=== PATIENT | female | born 1965 | race Caucasian/White ===

== ENCOUNTER → 2017-05-09 | Outpatient (CLI) | payer BC ==
--- NOTE | 2017-05-09 11:27 | XR ---
EXAMINATION TYPE: XR cervical spine comp DATE OF EXAM: 05/09/2017 COMPARISON: NONE HISTORY: Neck pain radiating down the left shoulder for 4 weeks. TECHNIQUE: 5 views of the cervical spine were obtained. FINDINGS: Uncovertebral hypertrophy is seen at C6-C7, right greater than left. Intervertebral disc sp reji narrowing is seen at C5-C6 and C6-C7 with small anterior osteophytes. Facet arthropathy is also e vident at these levels. There is no prevertebral soft tissue swelling. Neural foramen appear patent r adiographically. Lung apices are clear. Odontoid is intact. There is straightening of the usual cervi shilpi lordosis. IMPRESSION: Degenerative disc disease most pronounced at C5-C6 and C6-C7. Although the neural foramen appear radiographically patent, MRI could be performed for further evaluation and to evaluate for di sc herniation.
== END | disposition home or self-care (01) ==
LOC: RADXRMAIN 10:56
PROVIDERS: ATTEND Family Medicine
DX: M50.322 Other cervical disc degeneration at C5-C6 level (principal)
CPT/HCPCS: 72050

== ENCOUNTER → 2017-10-27 | Outpatient (CLI) | payer BC ==
--- NOTE | 2017-10-27 13:50 | PN ---
PROGRESS NOTE DATE OF SERVICE: 10/27/2018 A 52-year-old lady who has been followed in the [facility] for treatment of obstructive sleep apnea-hypopnea syndrome. Patient continued to use her CPAP equipment every night without significant problems related to mask fitting, pressure and humidification. [place] Sleepiness Scale today is 3. According to her , she does not snore. I checked her CPAP unit, CPAP pressure is 7 cm of water, usage is 100% of the time more than 4 hours. Average usage is 8 hours. The patient does not have information about apnea-hypopnea index. No sleepiness during the day. [place] Sleepiness Scale is 3. MEDICATIONS: None at the present time. Rizs-mho-hlszreg sometimes Tylenol. PHYSICAL EXAM: Patient in no distress. BP 129/80, HR 96, RR 16, height 5, 5, weight 198, 2 pounds more than during the visit about 1 year ago. BMI 33. Temp 97.9. Oxygen saturation at room air 96%. OROPHARYNX: Extremely low position of soft palate, Mallampati 4. ABDOMEN: Slightly obese. Neck Supple, no JVD. Thyroid is not palpable. LUNGS Clear to percussion and to auscultation. Good air exchange. No wheezing or rhonchi. HEART S1, S2 regular. No murmurs, gallops, or rubs. EXTREMITIES No clubbing or cyanosis. COMMUNICATION SPEC Awake, alert, and oriented X3. Cranial nerves 2 to 7 intact. There is no fasciculation or atrophy. noted. No focal deficits observed. IMPRESSION: 1. Obstructive sleep apnea-hypopnea syndrome. Patient demonstrated 100% compliance with treatment benefitting from treatment. 2. Mild obesity. 3. Allergic rhinitis. 4. Hyperlipidemia. PLAN: 1. Prescription for all necessary CPAP supplies including mask, tube, filters. 2. Losing weight. 3. Sleep hygiene with regular time in bed at least 7.5 hours. 4. No driving if feeling any sleepiness. 5. Followup visit in 1 year or earlier if patient has any problems. Thank you very much for allowing me to participate in the management of your patient. Sincerely, Gadiel Liu MD, PhD, FAASM Diplomat of [place] [place] Sales Executive of [facility] [place] MMODL / TRACEEN: [id number] /
== END | disposition home or self-care (01) ==
LOC: SLEEP 13:02
PROVIDERS: ATTEND Internal Medicine
DX: G47.33 Obstructive sleep apnea (adult) (pediatric) (principal); E66.9 Obesity, unspecified; J30.9 Allergic rhinitis, unspecified; E78.5 Hyperlipidemia, unspecified; Z68.33 Body mass index [BMI] 33.0-33.9, adult

== ENCOUNTER → 2019-06-26 | Outpatient (CLI) | payer BC ==
--- NOTE | 2019-06-26 12:16 | MM ---
Reason for exam: screening (asymptomatic). Last mammogram was performed 2 years and 9 months ago. History: Patient is postmenopausal. Family history of breast cancer in paternal aunt and breast cancer in sister at age 63. Took hormonal contraceptives for 20 years. Physical Findings: A clinical breast exam by your physician is recommended on an annual basis and results should be correlated with mammographic findings. MG 3D Screening Mammo W/Cad Bilateral CC and MLO view(s) were taken. Prior study comparison: September 16, 2016, right breast MG work up mamm w CAD RT. August 31, 2016, bilateral MG screening mammo w CAD. The breast tissue is heterogeneously dense. This may lower the sensitivity of mammography. There are benign appearing round calcifications in the right breast. There is no discrete abnormality. ASSESSMENT: Benign, BI-RAD 2 RECOMMENDATION: Routine screening mammogram of both breasts in 1 year.
== END | disposition home or self-care (01) ==
LOC: RADMAMWWP 07:12
PROVIDERS: ATTEND Obstetrics & Gynecology
DX: Z12.31 Encounter for screening mammogram for malignant neoplasm of breast (principal); Z80.3 Family history of malignant neoplasm of breast
CPT/HCPCS: 77063; 77067

== ENCOUNTER → 2020-11-26 | Outpatient (CLI) | payer BC ==
--- NOTE | 2020-11-27 00:30 | SFUN ---
SLEEP CENTER FOLLOW UP NOTE DATE OF SERVICE: 11/26/2020 55-year-old lady has been followed in Sleep Center for treatment of obstructive sleep apnea-hypopnea syndrome. During the previous visit, the patient was in the office 2 years ago, she continued to use her CPAP equipment every night. No snoring with the machine. [place] Sleepiness Scale today is 2. I checked CPAP unit. CPAP pressure is 7 cm of water. Usage is 100% of nights more than 4 hours. Average usage is 7.7 hours per night. No information about apnea- hypopnea index or leak in the machine. MEDICATIONS: The patient taking medication for allergy and sometimes Tylenol. PHYSICAL EXAM: Patient in no distress. BP 140/92, HR 68, RR 18, height 5 feet 5.5 inches, weight 211.2 pounds, temperature 98.3. Oxygen saturation at room air 99%. HEENT: PERRLA, EOMI. Oropharynx extremely low position of soft palate. Mallampati 4. NECK: Supple, no JVD. Thyroid is not palpable. LUNGS: Clear to percussion and to auscultation. Good air exchange. No wheezing or rhonchi. HEART: S1, S2 regular. No murmurs, gallops, or rubs. ABDOMEN: Obese. Soft and nontender. Bowel sounds are present. No organomegaly appreciated. EXTREMITIES: No clubbing or cyanosis. PRESCHOOL HEAD TEACHER: Awake, alert, and oriented X3. Cranial nerves 2 to 7 intact. There is no fasciculation or atrophy. noted. No focal deficits observed. IMPRESSION: 1. Obstructive sleep apnea-hypopnea syndrome. Patient demonstrated 100% compliance with treatment benefitting from treatment. 2. Mild obesity. 3. Obesity. 4. Allergic rhinitis. 5. Hyperlipidemia. PLAN: 1. Patient will continue to use PAP equipment every night for the whole night. 2. Sleep hygiene with regular time in bed for at least 7-1/2 to 8 hours. 3. Precautions related to driving. No driving if feeling sleepiness. 4. I will maintain all necessary prescription for PAP supplies including mask, tube, filters. 5. Watching weight. 6. No driving if feeling sleepiness. 7. Follow-up visit in 6 months or earlier if patient has any problems. I wrote a prescription for patient supplies today to be sure that she will get all necessary supplies. Thank you very much for referring this patient for consultation. Sincerely, Gadiel Liu MD, PhD, FAASM Diplomat of [employer] Attendant of [facility] [place] MMODL / TRACEEN: [id number] /
== END | disposition home or self-care (01) ==
LOC: SLEEP 16:46
PROVIDERS: ATTEND Internal Medicine
DX: G47.33 Obstructive sleep apnea (adult) (pediatric) (principal); E66.9 Obesity, unspecified; E78.5 Hyperlipidemia, unspecified; J30.9 Allergic rhinitis, unspecified; Z99.89 Dependence on other enabling machines and devices

== ENCOUNTER → 2021-04-21 | Outpatient (CLI) | payer BC ==
--- NOTE | 2021-04-21 15:56 | BD ---
EXAMINATION TYPE: Axial Bone Density DATE OF EXAM: 04/21/2021 COMPARISON: NONE CLINICAL HISTORY: 56 YR OLD FEMALE......ICD-10 CODE: N95.1 POST MENOPAUSAL Height: 64.7 Weight: 207 FRAX RISK QUESTIONS: NOTHING TO NOTE HERE RISK FACTORS HISTORY OF: HX OF RT FOOT FX IN HER YOUNG ADULT YRS Postmenopausal woman: YES, AT 53 YR OLD, NO HORMONES Hyperparathyroidism: NO Adrenal Insufficiency: NO MEDICATIONS: Additional Medications: VIT D AND CALCIUM Additional History: NOTHING TO NOTE HERE EXAM MEASUREMENTS: Bone mineral densitometry was performed using the [employer] System. Bone mineral density as measured about the Lumbar spine is: ----- L1-L4(G/cm2): 1.156 T Score Values are as follows: ----- L1: 0.2 ----- L2: -0.3 ----- L3: -0.4 ----- L4: -0.3 ----- L1-L4: -0.2 Bone mineral density FIRST DEXA SCAN.....BASELINE STUDY Bone mineral density about the R hip (g/cm2): 1.017 Bone mineral density about the L hip (g/cm2): 1.008 T Score values are as follows: -----R Neck: -0.5 -----L Neck: -0.6 -----R Total: 0.1 -----L Total: 0.0 Bone mineral density BASELINE STUDY FRAX%s: THERE IS A 4.7% CHANCE FOR A MAJOR OSTEOPOROTIC FX AND A 0.1% FOR HIP......PROBABILITY FO R FX IN 10 YRS TIME IMPRESSION: Normal bone mineral density. NOTE: T-SCORE=SD OF THE YOUNG ADULT MEAN.
--- NOTE | 2021-04-22 10:57 | MM ---
Reason for exam: screening (asymptomatic). Last mammogram was performed 1 year and 10 months ago. History: Patient is postmenopausal. Family history of breast cancer in paternal aunt and breast cancer in sister at age 63. Took hormonal contraceptives for 20 years. Physical Findings: A clinical breast exam by your physician is recommended on an annual basis and results should be correlated with mammographic findings. MG 3D Screening Mammo W/Cad Bilateral CC and MLO view(s) were taken. Prior study comparison: June 26, 2019, bilateral MG 3d screening mammo w/cad. September 16, 2016, right breast MG work up mamm w CAD RT. The breast tissue is heterogeneously dense. This may lower the sensitivity of mammography. There is scattered asymmetry bilaterally similar to prior. ASSESSMENT: Benign, BI-RAD 2 RECOMMENDATION: Routine screening mammogram of both breasts in 1 year.
== END | disposition home or self-care (01) ==
LOC: RADMAMWWP 12:35
PROVIDERS: ATTEND Family Medicine
DX: Z12.31 Encounter for screening mammogram for malignant neoplasm of breast (principal); N95.1 Menopausal and female climacteric states
CPT/HCPCS: 77063; 77067; 77080

== ENCOUNTER → 2021-06-25 | Outpatient (CLI) | payer BC ==
--- NOTE | 2021-06-25 19:04 | SFUN ---
SLEEP CENTER FOLLOW UP NOTE DATE OF SERVICE: 06/25/2021 This 56-year-old lady has been followed in Sleep Center for treatment of obstructive sleep apnea-hypopnea syndrome. The patient continues to use her CPAP equipment every night. Sometimes she has episodes of snoring with the machine. [place] Sleepiness Scale today is 2. I checked her CPAP unit. It is old. Usage is 29/30 nights for more than 4 hours, average 7.3 hours per night. CPAP 7 cm of water. The machine does not have information about apnea-hypopnea index. MEDICATIONS: The patient does not take any prescribed medication at the present time. PHYSICAL EXAMINATION: GENERAL: Pleasant patient in no distress. VITAL SIGNS: BP 135/89, HR 78, RR 15, height 5 feet 5-1/2 inches, weight 207 pounds. Body mass index 33.7. The patient lost 4 pounds since previous visit. Temperature 98.2, oxygen saturation at room air 97%. HEENT: PERRLA, EOMI, evaluation of oropharynx showed tongue protrudes midline. Extremely low position of soft palate; Mallampati IV. NECK: Supple, no JVD. Thyroid is not palpable. LUNGS: Clear to percussion and to auscultation. Good air exchange. No wheezing or rhonchi. HEART: S1, S2 regular. No murmurs, gallops, or rubs. ABDOMEN: Obese. EXTREMITIES: No clubbing or cyanosis. GRILL COOK: Awake, alert, and oriented X3. Cranial nerves 2 to 7 intact. There is no fasciculation or atrophy. noted. No focal deficits observed. IMPRESSION: 1. Obstructive sleep apnea-hypopnea syndrome. Patient demonstrated 100% compliance with treatment, benefitting from treatment. CPAP unit is old and does not have information about apnea-hypopnea index. Episodes of snoring on CPAP. 2. Mild obesity. 3. History of allergic rhinitis. 4. Hyperlipidemia. PLAN: 1. Prescription for a new CPAP unit, automatic machine. Range of the pressure 5-10 to cover possibility of snoring. 2. Patient will continue to use PAP equipment every night for the whole night. 3. Sleep hygiene with regular time in bed for at least 7-1/2 to 8 hours. 4. Precautions related to driving. No driving if feeling sleepiness. 5. I will maintain all necessary prescription for PAP supplies including mask, tube, filters. 6. Watching weight. 7. Follow-up visit in 6 months or earlier if patient has any problems. I spent 30 minutes with the patient and documentation. Thank you very much for allowing me to participate in the management of your patient. Sincerely, Gadiel Liu MD, PhD, FAASM Diplomat of [place] [employer] Sleep Medicine Board of [place] [employer] Mid Level Clinician of [facility] [place] MMODL / TRACEEN: [phone] /
== END | disposition home or self-care (01) ==
LOC: SLEEP 16:50
PROVIDERS: ATTEND Internal Medicine
DX: G47.33 Obstructive sleep apnea (adult) (pediatric) (principal); E66.01 Morbid (severe) obesity due to excess calories; J30.9 Allergic rhinitis, unspecified; E78.5 Hyperlipidemia, unspecified; Z68.33 Body mass index [BMI] 33.0-33.9, adult

== ENCOUNTER → 2022-04-27 | Outpatient (CLI) | payer BC | END | disposition home or self-care (01) | LOC: RADMAMWWP 16:57 | PROVIDERS: ATTEND Family Medicine | DX: Z53.9 Procedure and treatment not carried out, unspecified reason (principal) ==

== ENCOUNTER → 2022-05-04 | Outpatient (CLI) | payer BC ==
--- NOTE | 2022-05-05 17:39 | MM ---
Reason for Exam: Screening (asymptomatic). Last screening mammogram was performed 12 month(s) ago. Patient History: Menarche at age 17. First Full-Term at age 29. Postmenopausal. Hormonal Contraceptives for 20 years until age 41. Paternal aunt had breast cancer at or over age 50. Sister had breast cancer, age 63. Risk Values: Nataly 5 year model risk: 2.1%. NCI Lifetime model risk: 14.2%. Prior Study Comparison: 09/16/2016 Right Diagnostic Mammogram, [facility]. 06/26/2019 Bilateral Screening Mammogram, [facility]. 04/21/2021 Bilateral Screening Mammogram, [facility]. Tissue Density: The breast tissue is heterogeneously dense. This may lower the sensitivity of mammography. Findings: Analyzed By CAD. No suspicious groups of microcalcifications, spiculated or lobular masses, architectural distortion or other secondary signs of malignancy are mammographically apparent. No significant interval changes are evident. Overall Assessment: Benign, BI-RAD 2 Management: Screening Mammogram of both breasts in 1 year. A negative mammogram report should not preclude additional follow up of suspicious palpable abnormalities. Patient should continue monthly self breast exam. A clinical breast exam by your physician is recommended on an annual basis and results should be correlated with mammographic findings. Electronically signed and approved by: Orlando Barry D.O. Radiologis
== END | disposition home or self-care (01) ==
LOC: RADMAMWWP 16:12
PROVIDERS: ATTEND Family Medicine
DX: Z12.31 Encounter for screening mammogram for malignant neoplasm of breast (principal); Z00.00 Encounter for general adult medical examination without abnormal findings
CPT/HCPCS: 77063; 77067

== ENCOUNTER → 2025-02-05 | Outpatient (CLI) | payer BC ==
--- NOTE | 2025-02-06 07:33 | MM ---
Reason for Exam: Screening (asymptomatic). Last mammogram was performed 2 year(s) and 9 month(s) ago. Patient History: Menarche at age 17. First Full-Term at age 29. Postmenopausal. Hormonal Contraceptives for 20 years until age 41. Paternal aunt had breast cancer at or over age 50. Sister had breast cancer, age 63. Risk Values: Nataly 5 year model risk: 2.3%. NCI Lifetime model risk: 13.7%. Prior Study Comparison: 09/16/2016 Right Diagnostic Mammogram, [facility]. 06/26/2019 Bilateral Screening Mammogram, [facility]. 04/21/2021 Bilateral Screening Mammogram, [facility]. 05/04/2022 Bilateral MG 3D screening mammo w/cad, [facility]. Tissue Density: The breasts are heterogeneously dense, which may obscure small masses. Findings: There is a indeterminate grouped calcifications in the middle to posterior depth slightly outer upper aspect right breast that warrant further workup. Overall Assessment: Incomplete: need additional imaging evaluation, BI-RAD 0 Management: Special View Mammogram of the right breast. Return for additional spot magnification and 3-D true lateral views right breast. Patient should continue monthly self-breast exams. A clinical breast exam by your physician is recommended on an annual basis. This exam should not preclude additional follow-up of suspicious palpable abnormalities. Note on Nataly scores and lifetime risk: 1. A Nataly score greater than 3% is considered moderate risk. If this is the case, consider specialist referral to assess eligibility for a risk reducing agent. 2. If overall lifetime risk for the development of breast cancer is 20% or higher, the patient may qualify for future screening with alternating mammogram and breast MRI. [facility], , 02/06/2025 7:29 AM. Electronically signed and approved by: Lb Hubbard M.D.
== END | disposition home or self-care (01) ==
LOC: RADMAMWWP 16:12
PROVIDERS: ATTEND Family Medicine
DX: Z12.31 Encounter for screening mammogram for malignant neoplasm of breast (principal); R92.333 Mammographic heterogeneous density, bilateral breasts; Z78.0 Asymptomatic menopausal state; Z80.3 Family history of malignant neoplasm of breast; Z92.0 Personal history of contraception
CPT/HCPCS: 77063; 77067

== ENCOUNTER → 2025-02-08 | Outpatient (CLI) | payer BC ==
--- NOTE | 2025-02-08 15:13 | MM ---
Reason for Exam: Additional evaluation requested from abnormal screening. Last screening mammogram was performed less than 1 month ago. Patient History: Menarche at age 17. First Full-Term at age 29. Postmenopausal. Hormonal Contraceptives for 20 years until age 41. Paternal aunt had breast cancer at or over age 50. Sister had breast cancer, age 63. Risk Values: Nataly 5 year model risk: 2.3%. NCI Lifetime model risk: 13.7%. Prior Study Comparison: 08/31/2016 Bilateral Screening Mammogram, [facility]. 06/26/2019 Bilateral Screening Mammogram, [facility]. 04/21/2021 Bilateral Screening Mammogram, [facility]. 05/04/2022 Bilateral MG 3D screening mammo w/cad, [facility]. 02/05/2025 Bilateral MG 3D screening mammo wo cad, [facility]. Tissue Density: Right: The breasts are heterogeneously dense, which may obscure small masses. Findings: Analyzed By CAD. A new heterogeneous group of calcifications spanning roughly 8 mm in the posterior depth upper slightly outer aspect right breast persists on additional views and does not layer on lateral images. Overall Assessment: Suspicious, BI-RAD 4 Management: Stereotactic Core Biopsy of the right breast. . Results were given to the patient verbally at the time of exam. Patient should continue monthly self-breast exams. A clinical breast exam by your physician is recommended on an annual basis. This exam should not preclude additional follow-up of suspicious palpable abnormalities. Note on Nataly scores and lifetime risk: 1. A Nataly score greater than 3% is considered moderate risk. If this is the case, consider specialist referral to assess eligibility for a risk reducing agent. 2. If overall lifetime risk for the development of breast cancer is 20% or higher, the patient may qualify for future screening with alternating mammogram and breast MRI. [facility], , 02/08/2025 3:10 PM. Electronically signed and approved by: Lb Hubbard M.D.
== END | disposition home or self-care (01) ==
LOC: RADMAMWWP 14:39
PROVIDERS: ATTEND Family Medicine
DX: R92.8 Other abnormal and inconclusive findings on diagnostic imaging of breast (principal); R92.331 Mammographic heterogeneous density, right breast; Z78.0 Asymptomatic menopausal state; Z80.3 Family history of malignant neoplasm of breast
CPT/HCPCS: 77061; 77065